=== PATIENT | female | born 1990 | race Caucasian/White ===

== ENCOUNTER 2020-07-22 12:55 | Outpatient (REF) | payer OTHER, SELFPAY | END 2020-07-22 12:56 | disposition home or self-care (01) | LOC: HO.HMGCLDS 12:55 | PROVIDERS: Visit Provider Internal Medicine | DX: Z20.822 Contact with and (suspected) exposure to COVID-19 (principal) | CPT/HCPCS: 36415; C9803; U0003 ==

== ENCOUNTER 2024-03-31 08:37 | Outpatient (REF) | payer OTHER, SELFPAY ==
[2024-03-31 09:37] LABS: Hemoglobin 12.7 g/dl (12.0-16.0); Mean Corpuscular HGB Conc 34.3 g/dl (31.0-35.0); Mean Corpuscular Hemoglobin 32.1 pg (27.0-33.0); Mean Corpuscular Volume 93.4 fL (80.0-98.0); Mean Platelet Volume 10.4 fL (9.4-12.3); Platelet Count 248 X10*3/uL (160-400); Red Blood Count 3.96 X10*6/uL (4.20-5.50); Red Cell Distribution Width 12.1 % (11.0-16.0)
[2024-03-31 10:17] LABS: Alanine Aminotransferase 15 U/L (0-31); Albumin Level 4.3 g/dL (3.5-5.0); Alkaline Phosphatase 74 U/L (39-117); Anion Gap 11 (12-20); Aspartate Amino Transferase 21 U/L (5-31); Bilirubin Total 0.3 mg/dL (0.0-1.0); Blood Urea Nitrogen 10 mg/dL (9-16); Calcium 9.7 mg/dL (8.4-10.2); Carbon Dioxide 26 mmol/L (22-29); Chloride 106 mmol/L (96-108); Estimated Glomerular Filt Rate > 60; Glucose Fasting 88 mg/dL (60-99); Potassium 3.9 mmol/L (3.3-5.1); Sodium 139 mmol/L (135-145); Total Protein 7.5 g/dL (6.5-8.0)
== END 2024-03-31 08:38 | disposition home or self-care (01) ==
LOC: HO.LAB 08:37
PROVIDERS: PCP Physician Assistant; Visit Provider Physician Assistant
DX: Z13.1 Encounter for screening for diabetes mellitus (principal)
CPT/HCPCS: 36415; 80053; 85027

== ENCOUNTER 2024-04-04 10:41 | Outpatient (AMB) | payer OTHER, SELFPAY ==
[2024-04-04 10:41] VITALS: BP 114/76; PULSE 97; O2SAT 98; BMI 24.0
--- NOTE | 2024-04-04 10:41 | MHC.PC.OV ---
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 Transferring care from [facility], has not seen a PCP in over 6 years. Medical records have been requested and received. 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 Patient has a history of anemia, abnormal Pap screening and asthma. Patient has not seen a PCP in over 6 years. Patient reports she has a history of juvenile asthma, has been using her son's asthma upon which has been helpful. Pharmacy Associate: Need ENERGY PROJECT MANAGER provider- has a history HPV infection and a typical cells on Pap. Would like to reestablish care with a services host Vaccines: Up-to-date with COVID vaccine, considering flu vaccine. Laboratory Tests 03/31/24 08:50 RBC 3.96 L Hgb 12.7 Creatinine 0.76 PFSH Medical History Depression Scoliosis Prior with demise Pap smear abnormality of cervix with HGSIL Hematoma, vulva Cervical intraepithelial neoplasia grade 2 Anemia Surgical History H/O umbilical hernia repair History of colposcopy Family History Mother DMII (diabetes mellitus, type 2) Brain tumor Clot Father DMII (diabetes mellitus, type 2) Social History (Updated 04/04/24 @ 10:57 by Jalen Taylor PA-C) Housing: House Alcohol intake: current Alcohol intake frequency: holidays/special occasions only Patient Tobacco Use Status: Never used Tobacco e-Cigarette/Vaping Use: Never Used service: No Current occupational status: employed Current occupation: [employer] Cognitive needs: No Hearing needs: No Vision needs: No Questionnaire PHQ-9 Over the last 2 weeks, how often have you been bothered by any of the following problems? 1. Little interest or pleasure in doing things: not at all 2. Feeling down, depressed, or hopeless: not at all 3. Trouble falling or staying asleep, or sleeping too much: not at all 4. Feeling tired or having little energy: not at all 5. Poor appetite or overeating: not at all 6. Feeling bad about yourself - or that you are a failure or have let yourself or your family down: not at all 7. Trouble concentrating on things, such as reading the newspaper or watching television: not at all 8. Moving or speaking so slowly that other people could have noticed. Or the opposite - being so fidgety or restless that you have been moving around a lot more than usual: not at all 9. Thoughts that you would be better off or of hurting yourself in some way: not at all Total score: 0 Depression Screening Interpretation: Negative Depression Screening Done: Yes 88362 - PHQ-9 Billing: Yes Source: Developed by Drs. Godfrey Higginbotham, Christal Yanes, Christian Capone and colleagues, with an educational nii from [employer]. Thrive Questionnaire Date Thrive assessed: 04/04/24 I am a: Patient What is your living situation today?: I have a steady place to live Within the past 12 months, did the food you bought not last and you didn't have the money to get more?: Never true Within the past 12 months, did you worry whether your food would run out before you got money to buy more?: Never true Do you have trouble paying for medicines?: No Do you have trouble with day-to-day activities such as bathing, preparing meals, shopping, managing finances, etc.?: No Are you currently unemployed and looking for a job?: No Are you interested in more education?: No Please select the resources that you would like help with: None Currently or been in a relationship where the following occur: No concerns reported THRIVE Score: 0 AUDIT C Alcohol Use Questionnaire (AUDIT-C) 1. How often do you have a drink containing alcohol?: Monthly or less 2. How many drinks containing alcohol do you have on a typical day when you are drinking?: 1 or 2 3. How often do you have six or more drinks on one occasion?: Never Total Score: 1 VALENTINE-7 AMB Questionnaire VALENTINE-7 Date VALENTINE - 7 assessed: 04/04/24 Feeling nervous, anxious, or on edge: 0 = Not at all Not being able to stop or control worryin = Not at all Worrying too much about different things: 0 = Not at all Trouble relaxin = Not at all Being so restless that it is hard to sit still: 0 = Not at all Becoming easily annoyed or irritable: 0 = Not at all Feeling afraid as if something awful might happen: 0 = Not at all Total VALENTINE-7 score (0-4 normal; 5-9 mild; 10-14 moderate; 15-21 severe): 0 Source: Developed by Drs. Godfrey Higginbotham, Christal Yanes, Christian Capone and colleagues, with an educational nii from [employer]. VALENTINE-7 Assessment Billing VALENTINE-7 Assessment Tool: VALENTINE-7 Assessment 47886 ACT Questionnaire In the past 4 weeks, how much of the time did your asthma keep you from getting as much done at work, school or at home?: None of the time During the past 4 weeks, how often have you had shortness of breath?: 1-2 times a week During the past 4 weeks, how often did your asthma symptoms wake you up at night or earlier than usual in the morning?: Not at all During the past 4 weeks, how often have you had to use your rescue inhaler or nebulizer medication?: Not at all How would you rate your asthma control during the past 4 weeks?: Completely controlled ACT Interpretation: Positive ACT Branch: New medication Score: 24 Review of Systems Const Denies body aches, Denies chills, Denies excessive sweating, Denies fatigue, Denies fever(s) and Denies headache(s) Eyes Denies blurry vision ENT Denies dysphagia, Denies vertigo, Denies dizziness, Denies headache(s), Denies hearing loss and Denies tinnitus Card Denies chest pain, Denies chest pain with activity, Denies syncope, Denies irregular heart rhythm and Denies dyspnea Resp Denies chest congestion, Denies cough, Denies hemoptysis, Denies dyspnea and Denies wheezing GI Denies abdominal pain, Denies melena, Denies hematochezia, Denies coffee ground emesis, Denies dysphagia, Denies diarrhea, Denies nausea and Denies vomiting Denies urinary frequency, Denies dysuria, Denies urinary hesitancy and Denies urinary urgency Musc Denies arthralgias, Denies limited range of motion, Denies muscle cramps and Denies muscle weakness Skin/Breast Denies rash and Denies skin ulcer Neuro Denies Abnormal speech present, Denies confusion, Denies vertigo, Denies dizziness, Denies syncope, Denies headache(s), Denies memory loss and Denies seizure-like activity Psych Denies anxiety, Denies confusion, Denies depression, Denies memory loss, Denies panic attacks and Denies paranoia Endo Denies excessive sweating, Denies fatigue, Denies flushing, Denies polydipsia and Denies polyuria Aller/Immun Denies wheezing Physical exam (Primary Care) Vital Signs: Last Vital Signs Pulse 97 04/04/24 10:41 BP 114/76 04/04/24 10:41 Pulse Ox 98 04/04/24 10:41 Oxygen Delivery Method Room Air 04/04/24 10:41 BMI result Body Mass Index 24.0 Tobacco/Smoking Status: Tobacco use Status Tobacco use date assessed 04/04/24 04/04/24 10:49 Patient Tobacco Use Status Never used Tobacco 04/04/24 10:57 e-Cigarette/Vaping Use Never Used 04/04/24 10:57 PHQ-9: PHQ-9 Score PHQ-9: Total score 0 04/04/24 11:14 Depression Screening Interpretation: Negative Thrive Assessment: Date of Thrive Assessment Date Thrive assessed 04/04/24 04/04/24 10:45 Currently or been in a relationship where the following occur: No concerns reported Const General: cooperative, comfortable, no acute distress, alert and awake; No confusion Orientation/consciousness: oriented to person, oriented to place, patient oriented x3 and No confusion HENMT Head: Yes normocephalic Ears: external ears normal and TM's normal bilaterally Face and sinus: No sinus tenderness Mouth: Normal oral and palatal mucosa present and tongue normal Teeth and gingiva: dentition normal and gingiva normal Throat: Yes posterior oropharynx normal, Yes tonsils normal and Yes uvula midline Eyes Conjunctivae: conjunctivae normal Sclerae: sclerae normal Pupils: Equal, round and reactive pupils present EOM: EOMs intact bilaterally Direct Ophthalmoscopy: No no photophobia Neck Neck: Yes no lymphadenopathy, No tender and Yes no JVD Thyroid: Thyroid normal Carotids: no bruits Chest Chest palpation & inspection: no tenderness Resp Effort & Inspection: normal respiratory effort, no audible wheezes, not labored and no stridor Auscultation: no crackles, no rales, no rhonchi and no wheezes Cardio Jugular venous distension: no JVD Rate: regular rate, not bradycardic and not tachycardic Rhythm: regular rhythm Bruits: no carotid bruits Peripheral pulses: Peripheral pulses 2+ throughout GI Inspection: Yes normal to inspection, No abdominal wall ecchymosis and No visible herniation Palpation (GI): Soft to palpation, nontender, no guarding, not rigid and No hepatosplenomegaly present Auscultation: normoactive bowel sounds General: Yes no CVA tenderness Back/Spine/Pelvis Back: no CVA tenderness and No back tenderness Cervical Spine: cervical ROM normal Thoracic/Lumbar Spine: thoracic and lumbar spine normal to inspection, straight leg raise negative bilaterally, No thoraco-lumbar ROM limited and No lumbar spinal tenderness Skin Lesions: no lesions Rashes: no rashes Wounds: no wounds Neuro General: oriented to person, oriented to place, patient oriented x3, CN's II-XI intact bilaterally and No confusion Cranial nerves: Yes Equal, round and reactive pupils present and Yes Normal accommodation reflex present Cognition (Neuro): normal cognition Speech: No Abnormal speech present Gait exam (Neuro): Normal gait present Motor exam (neuro): 5/5 motor strength present throughout Extrem Right upper extremity: full ROM; no cyanosis Left upper extremity: full ROM; no cyanosis Right lower extremity: no edema Left lower extremity: no edema Psych Appearance: grossly normal Mental Status: mental status grossly normal Affect: normal affect Attitude: cooperative Thought process: Normal thought process present Office Procedures Flu Questionnaire Does the patient have a severe egg allergy?: No Does the patient have severe life threatening allergies?: No Does the patient have a fever or illness today?: No Has the patient ever had Guillain-Bethesda Syndrome?: No Has the patient ever had any past reaction to a flu shot?: No Immunizations Fluarix Triv 4543-6383 (PF) 45 mcg (15 mcg x 3)/0.5 mL IM syringe Performing Provider: Jalen Taylor PA-C [facility] [place] [facility] Administered by: EVIE Puente on 04/04/24 11:14 Dose Route Admin Location Dispensed Lot Number Expiration Date ND Channel Man 0.5 mL IM Left Deltoid 0.5 mL [id number] 12/31/24 91364-967-34 Patient Engagement Systems VIS Given Date VIS Provided VIS Publication Date 04/04/24 Single Vaccine 21 Eligibility Eligibility Date Funding Source Not [facility] Eligible 04/04/24 Private Coding Level of Care Code Tele Est Pt Level 4 (89371) Diagnoses Annual physical exam Z00.00 Pap smear abnormality of cervix with HGSIL R87.613 Mild persistent asthma without complication J45.30 Asthma complication type: uncomplicated Asthma persistence: persistent Asthma severity: mild Additional Codes VALENTINE-7 Assessment Billing - VALENTINE-7 Assessment Tool: VALENTINE-7 Assessment 53247 ([id number]) Assessment & Plan Assessment & Plan (1) Annual physical exam: Code(s): Z00.00 - Encounter for general adult medical examination without abnormal findings Category: Medical Plan: as per HPI (2) Pap smear abnormality of cervix with HGSIL: Code(s): R87.613 - High grade squamous intraepithelial lesion on cytologic smear of cervix (HGSIL) Category: Medical Plan: Need ENERGY PROJECT MANAGER followup for PAP (3) Asthma: Code(s): J45.909 - Unspecified asthma, uncomplicated Category: Medical Qualifiers: Asthma complication type: uncomplicated Asthma persistence: persistent Asthma severity: mild Qualified Code(s): J45.30 - Mild persistent asthma, uncomplicated Plan: Has History of asthma, Will like her own rescue inhaler Orders: Orders CT NG by PCR Today Z13.1 - Encounter for screening for diabetes mellitus, Z20.2 - Contact with and (suspected) exposure to infections with a predominantly sexual mode of transmission Syphilis Screen Today Z11.3 - Encounter for screening for infections with a predominantly sexual mode of transmission, Z13.1 - Encounter for screening for diabetes mellitus HIV Ab/Ag Today Z11.3 - Encounter for screening for infections with a predominantly sexual mode of transmission, Z13.1 - Encounter for screening for diabetes mellitus Influenza [id number] Immunization Today Z23 - Encounter for immunization Referrals DATABASE REPORT WRITER Referral R87.613 - High grade squamous intraepithelial lesion on cytologic smear of cervix (HGSIL) Medications: New albuterol sulfate 90 mcg/actuation 1 inh inhalation QID PRN 8.5 grams 3RF shortness of breath or wheezing 30 days J45.30 - Mild persistent asthma, uncomplicated
== END 2024-04-04 11:21 | disposition home or self-care (01) ==
LOC: HO.HMCH 10:41
PROVIDERS: PCP Physician Assistant; Visit Provider Physician Assistant
DX: Z00.00 Encounter for general adult medical examination without abnormal findings (principal); R87.613 High grade squamous intraepithelial lesion on cytologic smear of cervix (HGSIL); J45.30 Mild persistent asthma, uncomplicated; Z23 Encounter for immunization

== ENCOUNTER → 2024-04-04 10:41 | Outpatient (BNVA) | payer OTHER, SELFPAY | PROVIDERS: PCP Physician Assistant; Visit Provider Physician Assistant | DX: Z00.01 Encounter for general adult medical examination with abnormal findings (principal); Z23 Encounter for immunization; R87.613 High grade squamous intraepithelial lesion on cytologic smear of cervix (HGSIL); J45.30 Mild persistent asthma, uncomplicated | CPT/HCPCS: 90471; 90656; 96127 ==

== ENCOUNTER 2024-04-10 07:37 | Outpatient (AMB) | payer OTHER, SELFPAY ==
[2024-04-10 07:42] VITALS: BP 110/62; BMI 23.8
--- NOTE | 2024-04-10 07:42 | MHC.OFFVIS ---
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 No complaints. 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 Depression Scoliosis Prior with demise Pap smear abnormality of cervix with HGSIL Hematoma, vulva Cervical intraepithelial neoplasia grade 2 Anemia Surgical History H/O umbilical hernia repair History of colposcopy Family History Mother DMII (diabetes mellitus, type 2) Brain tumor Clot Father DMII (diabetes mellitus, type 2) Social History (Updated 04/04/24 @ 10:57 by Jalen Taylor PA-C) Housing: House Alcohol intake: current Alcohol intake frequency: holidays/special occasions only Patient Tobacco Use Status: Never used Tobacco e-Cigarette/Vaping Use: Never Used service: No Current occupational status: employed 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 Cognitive needs: No Hearing needs: No Vision needs: No Female Reproductive History Menstrual Date of last menstrual period: 03/31/24 Review of Systems Const All systems reviewed & are unremarkable except as noted in HPI and below Card Reports as per HPI Resp Reports as per HPI GI Reports as per HPI and Reports no additional complaints Reports as per HPI Physical Exam Vital Signs: Last Vital Signs BP 110/62 04/10/24 07:42 BMI result Body Mass Index 23.8 Const General: cooperative, healthy appearing and comfortable Chest Chest palpation & inspection: normal inspection of the chest and normal palpation of entire chest wall Breast/axilla inspection: normal inspection of the breasts and normal inspection of the axillae Breast/axilla palpation: normal palpation of the breasts, normal palpation of the axillae and no axillary lymphadenopathy Resp Effort & Inspection: normal respiratory effort Auscultation: clear to auscultation bilaterally Percussion: percussion normal Cardio Palpation: normal PMI Rate: regular rate Rhythm: regular rhythm Heart sounds: no murmurs and no rubs Peripheral pulses: Peripheral pulses 2+ throughout GI Inspection: Yes normal to inspection Palpation (GI): Soft to palpation, nontender, no guarding, not rigid and No hepatosplenomegaly present Percussion: Yes normal to percussion Auscultation: normal bowel sounds Rectal Exam - Female: deferred General: Yes bladder normal to palpation External Female Exam: No lesion Speculum Exam - Vagina: normal appearance of the vagina, normal palpation, normal vaginal discharge and not erythematous Speculum Exam - Cervix: normal appearance of the cervix, normal palpation and Other cervical findings present (IUD thread in place) Bimanual exam- vagina & uterus: normal bimanual exam, normal palpation, uterine size normal, bladder normal to palpation, consistency normal and normal palpation Bimanual Exam- Adnexa, other: normal adnexae, no masses and no tenderness Assessment & Plan Assessment & Plan (1) Well woman exam: Comment: History of RADHA 3 status post LEEP in 2009 Code(s): Z01.419 - Encounter for gynecological examination (general) (routine) without abnormal findings Category: Medical Plan: Cotesting done. Counseled the patient about the recommended dietary allowance of 1000 mg of Calcium & 600 IU of vitamin D. The patient was instructed to perform monthly self-breast exams and to schedule an annual exam in a year; All questions answered and the patient verbalized understanding. Instructed the patient to schedule annual exam in a year (2) IUD check up: Code(s): Z30.431 - Encounter for routine checking of intrauterine contraceptive device Category: Medical Plan: GC/CT taken. Discussed with the patient's since Mirena IUD was inserted 5 years ago, explained to the patient that it is FDA approved for conception for 8 years and for abnormal uterine bleeding for 5 years, recommended schedule an appointment for Mirena IUD removal/insertion within 1-2 weeks. All questions answered, the patient verbalized understanding and agreed with the plan Coding Level of Care Code New Pt Prev Care 18-39yr(98221 Diagnoses Well woman exam Z01.419 IUD check up Z30.431
== END 2024-04-10 08:02 | disposition home or self-care (01) ==
PROVIDERS: PCP Physician Assistant; Visit Provider Obstetrics & Gynecology
DX: Z01.419 Encounter for gynecological examination (general) (routine) without abnormal findings (principal); Z30.431 Encounter for routine checking of intrauterine contraceptive device
CPT/HCPCS: 99385

== ENCOUNTER 2024-04-10 07:37 | Outpatient (REF) | payer OTHER, SELFPAY ==
[2024-04-11 11:21] LABS: CT PCR NOT DETECTED (Not Detect.); NG PCR NOT DETECTED (Not Detect.)
[2024-04-17 08:13] LABS: HPV 16 RNA NOT DETECTED (NOT DETECTED); HPV mRNA E6/E7 Detected (Not Detected)
== END 2024-04-10 07:38 | disposition home or self-care (01) ==
LOC: HO.LNP 07:37
PROVIDERS: PCP Physician Assistant; Visit Provider Obstetrics & Gynecology
DX: Z01.419 Encounter for gynecological examination (general) (routine) without abnormal findings (principal); R87.810 Cervical high risk human papillomavirus (HPV) DNA test positive; Z86.001 Personal history of in-situ neoplasm of cervix uteri
CPT/HCPCS: 87491; 87591; 87624; 87625; 88175; 99385

== ENCOUNTER 2024-05-07 13:05 | Outpatient (AMB) | payer OTHER, SELFPAY ==
--- NOTE | 2024-05-07 13:14 | MHC.OFFVIS ---
Vital Signs 05/07/24 13:18 Height 5 ft 3 in Weight 134 lb BMI 23.7 BP 120/60 Blood Pressure Location Lt brachial Position Sitting Intake Visit Reasons: Mirena removal/insertion/colpo Allergies latex Allergy (Severe, Verified 05/07/24 13:18) Anaphylaxis HPI Comments Details: Presenting for colposcopy, Pap smear negative/HPV E6 E7 positive HPV 16/18/40 5-. In addition the patient is presenting for Mirena IUD removal and re insertion FOR[facility]LY [facility], [facility]–1983 Medical History RADHA III (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 Depression Scoliosis Prior with demise Pap smear abnormality of cervix with HGSIL Hematoma, vulva Cervical intraepithelial neoplasia grade 2 Anemia Surgical History H/O umbilical hernia repair History of colposcopy Family History Mother DMII (diabetes mellitus, type 2) Brain tumor Clot Father DMII (diabetes mellitus, type 2) Social History Housing: House Alcohol intake: current Alcohol intake frequency: holidays/special occasions only Patient Tobacco Use Status: Never used Tobacco e-Cigarette/Vaping Use: Never Used service: No Current occupational status: employed 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 We thoroughly discussed the procedure itself, including its details, alternatives, and all associated risks. This included but not limited to the following complications such as bleeding, infection, and injury to the vagina, bladder, and vessels, as well as the potential need for transfusion with all its associated risks. Subsequently, the patient sign the consent. Pap smear result: Negative Pap/HPV E6 E7 positive Urine test in office = Negative Procedure: During the procedure, the following steps were performed: A speculum was inserted, and acetic acid was applied. Colposcopy was conducted, allowing visualization of the transformation zone. Acetowhite lesions were identified at the 5+6+7+9+11+12+3 o'clock position. Cervical biopsies were obtained from the 5+6+7+9+11+12+ o'clock position, followed by an endocervical curettage (ECC). Vaginoscopy of the upper vagina revealed no evidence of aceto-white lesions. Hemostasis was achieved using Monsel solution, and the patient tolerated the procedure well. Post-Procedure Instructions: The patient was advised to promptly contact the office or the after hours answering service or go to the emergency room if experiencing a temperature exceeding 100.4?F, abdominal pain, nausea/vomiting, or bleeding. Additionally, the patient was instructed to abstain from vaginal intercourse and bathtub use. The patient confirmed understanding of these instructions. Discharge Instructions: The patient was instructed to schedule a follow-up appointment in 2 weeks for further evaluation and management. Please note that this note was generated using a voice recognition program, and errors may have occurred during technology solutions architect. [id number]-[id number] of cervix including upper vagina with biopsy and ECC Procedure code (CPT) selection complete IUD Insert/Removal Details Details: The patient is presenting for IUD removal and IUD reinsertion. Her last menstrual period was within the last 5 days, Urine test was done in the office and was negative; All the contraindications were excluded. The following possible complications were discussed with the patient: Intrauterine , Ectopic , Sepsis, Pelvic Infection, Irregular Bleeding and Amenorrhea, Perforation, Expulsion, Ovarian Cysts, Breast Cancer. The following adverse effects were discussed with the patient: alteration of menstrual bleeding pattern, including: unscheduled uterine bleeding decreased uterine bleeding increased scheduled uterine bleeding female genital tract bleeding ,amenorrhea , genital discharge , vulvovaginitis , breast pain , benign ovarian cyst and associated complications , dysmenorrhea , Gastrointestinal disorders abdominal/pelvic pain, headache/migraine , back pain , acne , depression Alternative options were discussed with the patient including but not limited: control pills, patch, NuvaRing, Depo-medroxyprogesterone acetate, Nexplanon, copper IUD, sterilization, vasectomy, others The procedure was explained in detail to patient , at the end patient signed the informed consent obtained. Alternative options were discussed with the patient The patient signed the consent and agreed with the plan; all questions answered. Urine test was done in the office and was negative Preop dx: Requesting IUD removal and Reinsertion Op: IUD removal and Mirena insertion Post op dx: same EBL= 10 cc Procedure: The patient was put in the dorsal lithotomy position a speculum was inserted in the vagina the IUD thread identified. Using a Clara clamp the thread was grasped and the IUD pulled out with no complications. A no touch technique was used throughout the procedure. A speculum was placed into vagina and cervix was cleaned with betadine). A tenaculum was placed. A plastic sound was advanced through the external and internal os until it reached the fundus of the uterus, the depth was 8 cm. The sound was then withdrawn. The IUD was loaded in a sterile manner and advanced into position. The string was visualized and cut to 3 cm. Tenaculum site hemostatic. All instruments removed from vagina. Patient tolerated the procedure well. NO complications were noted. Patient was instructed to call for fever over 100.4, significant pain unrelieved by Motrin, IUD expulsion, heavy bleeding, or abnormal discharge. In addition, the following clinical considerations were discussed with the patient to call for removal: A stroke or heart attack ,Very severe or migraine headaches ,Unexplained fever ,Yellowing of the skin or whites of the eyes, as these may be signs of serious liver problems , or suspected , Pelvic pain or pain during sex ,HIV positive seroconversion in herself or her partner , Possible exposure to sexually transmitted infections Unusual vaginal discharge or genital sores , severe vaginal bleeding or bleeding that lasts a long time, or if she misses a menstrual period, Inability to feel Mirena's threads Counseled the patient that the IUD does not protect against STI's, recommended use of condoms for the first 7 days post insertion and explained to the patient that condoms are recommended for patients at risk for sexually transmitted infections. Follow up appointment made for 4 weeks following insertion. Date of removal in no more than five years for DUB treatment and 8 years for contraception from today?s date was d/w patient. This note was generated with a voice recognition program. Some errors may have been overlooked during the review of this note. Sometimes these errors may affect the content or meaning of a given sentence. 43533-TII Insertion 32948-HOU Removal Procedure code (CPT) selection complete Office Meds Mirena 21 mcg/24 hr (up to 8 years) 52 mg intrauterine device Performing Provider: Sanjiv Mandel MD Performing Location: [facility] [place] [facility] Documented (not given) by: Sanjiv Mandel MD on 05/07/24 13:31 Dose Route Admin Location Dispensed Lot Number Expiration Date NDC Family Law Specialist 1 device intrauterine ea Results AMB Test Urine AMB Test Urine Negative Last Edit by Kiley Vu CMA on 05/07/24 13:20 Assessment & Plan Assessment & Plan (1) HPV in female: Comment: Negative Pap Code(s): B97.7 - Papillomavirus as the cause of diseases classified elsewhere Category: Medical Plan: Discussed with the patient the result of normal pap/HPV E6 E7 positive, its significance, risk of progression, persistence, and regression. the false positive/negative rate of a Pap smear as a screening test in detecting cervical cancer and the indication for a diagnostic test -colposcopy, biopsy, endocervical curettage. The patient verbalized understanding and agreed with the plan, all questions answered. Colpo/biopsy/ECC done, see procedure note (2) Remove/insert IUD: Code(s): Z30.433 - Encounter for removal and reinsertion of intrauterine contraceptive device Category: Medical Plan: Mirena IUD removal/reinsertion done, see procedure note Orders: Orders AMB HCG Urine Test Today Z32.02 - Encounter for test, result negative AMB IUD Insertion/Removal - Practice Supplied Today Z30.433 - Encounter for removal and reinsertion of intrauterine contraceptive device AMB Colposcopy Today B97.7 - Papillomavirus as the cause of diseases classified elsewhere Medications: New Mirena (levonorgestrel) 1 device intrauterine ONCE 1 ea 0RF IUD removal/insertion NS Z30.433 - Encounter for removal and reinsertion of intrauterine contraceptive device Coding Level of Care Code Procedure Only Diagnoses HPV in female B97.7 Remove/insert IUD Z30.433 CPT Codes Colposcopy - CPT: 06899-Ejoxdhktr of cervix including upper vagina with biopsy and ECC ([id number]) Details - CPT: 01682-TGS Insertion ([id number]) Details - CPT: 64479-IEH Removal ([id number])
[2024-05-07 13:18] VITALS: BP 120/60; BMI 23.7
== END 2024-05-07 14:27 | disposition home or self-care (01) ==
LOC: HO.HWS 13:08
PROVIDERS: PCP Physician Assistant; Visit Provider Obstetrics & Gynecology
DX: R87.810 Cervical high risk human papillomavirus (HPV) DNA test positive (principal); Z30.433 Encounter for removal and reinsertion of intrauterine contraceptive device; Z32.02 Encounter for pregnancy test, result negative
CPT/HCPCS: 57454; 58300; 58301

== ENCOUNTER 2024-05-07 13:05 | Outpatient (REF) | payer OTHER, SELFPAY | END 2024-05-07 13:06 | disposition home or self-care (01) | LOC: HO.LNP 13:05 | PROVIDERS: PCP Physician Assistant; Visit Provider Obstetrics & Gynecology | DX: Z30.433 Encounter for removal and reinsertion of intrauterine contraceptive device (principal); B97.7 Papillomavirus as the cause of diseases classified elsewhere; Z32.02 Encounter for pregnancy test, result negative | CPT/HCPCS: 57454; 58300; 58301; 81025; 88305; J7298 ==

== ENCOUNTER 2024-05-10 15:34 | Outpatient (AMB) | payer OTHER, SELFPAY ==
[2024-05-10 15:53] VITALS: BMI 23.4
--- NOTE | 2024-05-10 15:53 | A.OFFVIS_ITS ---
Vital Signs 05/10/24 15:53 Height 5 ft 3 in Weight 132 lb 4.438 oz BMI 23.4 Intake Visit Reasons: check iud strings Production Planner Scheduler Required: No Information Interpreted: non-clinical & clinical Automotive Drivability Technician: Automotive Drivability Technician Present (Beverly FAGAN) Accompanied by: Self / Same As Patient Allergies latex Allergy (Severe, Verified 05/07/24 13:18) Anaphylaxis HPI Comments Details: Presenting 4 days post IUD insertion complaining of passage of IUD string , no pelvic pain or cramping , no vaginal bleeding or any other concerns PFSH Medical History RADHA III (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 Depression Scoliosis Prior with demise Pap smear abnormality of cervix with HGSIL Hematoma, vulva Cervical intraepithelial neoplasia grade 2 Anemia Surgical History H/O umbilical hernia repair History of colposcopy Family History Mother DMII (diabetes mellitus, type 2) Brain tumor Clot Father DMII (diabetes mellitus, type 2) Social History Housing: House Alcohol intake: current Alcohol intake frequency: holidays/special occasions only Patient Tobacco Use Status: Never used Tobacco e-Cigarette/Vaping Use: Never Used service: No Current occupational status: employed 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 Cognitive needs: No Hearing needs: No Vision needs: No Review of Systems Const All systems reviewed & are unremarkable except as noted in HPI and below Physical Exam Vital Signs: BMI result Body Mass Index 23.4 General: Yes no CVA tenderness External Female Exam: normal external appearance and normal appearance of the urethra Speculum Exam - Vagina: normal appearance of the vagina, normal palpation, no l esions and no masses Speculum Exam - Cervix: normal appearance of the cervix, normal palpation, no lesions, no masses, nontender and Other cervical findings present (IUD string seen in place) Bimanual exam- vagina & uterus: normal bimanual exam, normal palpation, uterine size normal, normal palpation, uterine shape normal, No Cervical tenderness pres ent and non-tender Bimanual Exam- Adnexa, other: normal adnexae Back/Spine/Pelvis Back: no CVA tenderness Assessment & Plan Assessment & Plan (1) IUD check up: Code(s): Z30.431 - Encounter for routine checking of intrauterine contraceptive device Category: Medical Plan: UPT done in the office was negative. Will order pelvic ultrasound to confirm IUD placement. Discussed with the patient the finding on pelvic exam showing IUD strings in place. Instructions given the patient to call in case of pelvic pain and or bleeding, fever above 100.4 and to schedule an ultrasound follow-up appointment within few weeks. All questions answered, the patient verbalized understanding. Orders: Orders US pelvic and transvaginal Today Z30.431 - Encounter for routine checking of intrauterine contraceptive device Coding Level of Care Code Est Pt Level 3 (07636) Diagnoses IUD check up Z30.431
== END 2024-05-10 16:15 | disposition home or self-care (01) ==
LOC: HO.HWS 15:34
PROVIDERS: PCP Physician Assistant; Visit Provider Obstetrics & Gynecology
DX: Z30.431 Encounter for routine checking of intrauterine contraceptive device (principal)
CPT/HCPCS: 99213

== ENCOUNTER → 2024-05-10 15:34 | Outpatient (BNVA) | payer OTHER, SELFPAY | PROVIDERS: PCP Physician Assistant; Visit Provider Obstetrics & Gynecology | DX: Z30.431 Encounter for routine checking of intrauterine contraceptive device (principal) | CPT/HCPCS: 99212 ==